=== PATIENT | female | born 1930 | race Caucasian/White ===

== ENCOUNTER 2016-10-03 07:59 | Emergency (ER) | payer MEDICARE ==
[~2016-10-03] VITALS: Ht 157.5 cm; Wt 79.0 kg
[~2016-10-03 07:59] MED LIST: ALBU2.5I INH; ASPI81 PO; ATOR10TA PO; BRIM.15%O BOTH EYES; BUME1TAB PO; CALC600T34 PO; CEFU1TAB43 PO; DIPH50TA PO; DORZ1SOL2 EACH EYE; KLOR20TA6 PO; LUMI0.01 EACH EYE; METO25 PO; NYST500KS SS; OMEG1CAP53 PO; PREV15CA20 PO; ROBIDMS PO; TAB-TAB PO; THEO200T11 PO; VITA400C70 PO
[2016-10-03 08:04] VITALS: BP 147/65; PULSE 82; RESP 28; O2SAT 93
[2016-10-03 08:52] LABS: AUTOMATED NEUTROPHIL # 6.3 TH/MM3 (1.8-7.7); BASOPHIL % 0.3 % (0.0-2.0); EOSINOPHIL # 0.1 TH/MM3 (0-0.4); HEMATOCRIT 37.6 % (35.0-46.0); HEMO FLAGS DIFF FINAL; LYMPH % 12.1 % (9.0-44.0); MEAN CELL VOLUME 89.4 FL (80.0-100.0); MEAN CORPUSCULAR HEMOGLOBIN 30.9 PG (27.0-34.0); MEAN CORPUSCULAR HGB CONC 34.6 % (32.0-36.0); MONO % 8.7 % (0.0-8.0); NEUT % 77.9 % (16.0-70.0); PLATELET COUNT 230 TH/MM3 (150-450); RED BLOOD COUNT 4.21 MIL/MM3 (4.00-5.30); RED CELL DISTRIBUTION WIDTH 13.6 % (11.6-17.2); WHITE BLOOD COUNT 8.1 TH/MM3 (4.0-11.0)
[2016-10-03 09:02] VITALS: O2SAT 90; O2SAT 95
[2016-10-03 09:08] VITALS: BP 153/74; PULSE 82; RESP 28; TEMP 98.5; O2SAT 95
[2016-10-03 09:13] LABS: BICARBONATE 27.4 MEQ/L (21.0-32.0); POTASSIUM 3.8 MEQ/L (3.5-5.1)
[2016-10-03] MEDS ORDERED: SODIUM CHLORIDE 0.9% FLUSH 5 ML FLUSH IVF PRN (09:15)
[2016-10-03] MEDS ORDERED: methylPREDNISolone SOD SUCC 125 MG/2 ML VIAL IVP ONE (09:15)
--- NOTE | 2016-10-03 09:16 | PD ---
HPI Chief Complaint: Respiratory Distress Time Seen by Provider: 09:01 Travel History International Travel<30 days: No Contact w/Intl Traveler<30days: No Traveled to known affect area: No History of Present Illness HPI Patient is a 86-year-old female who presents to the emergency department for cough and cold symptoms of several weeks duration. According to the son, the patient travel to [facility] for the holidays. The patient, "cold ", that the rest the family apparently also had at that time. However, the patient symptoms have progressed and the patient now has shortness of breath with chest congestion. The patient states she has a dry mostly nonproductive cough with chest congestion. She also complains of mild edema around the right eye with a small amount of drainage. 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 The patient does have a history of COPD secondary to secondhand smoke from her , but denies any history of personal tobacco use. The patient denies any history of pulmonary embolism, DVT, recent hospitalizations, recent surgery, or lower extremity swelling. The patient denies any known history congestive heart failure. The patient's oven roaster is Dr. Jayden Carpenter and her primary physician is Dr. Vaughn. [facility] Past Medical History Arthritis: Yes Asthma: Yes Depression: Yes Cancer: No Cardiovascular Problems: Yes High Cholesterol: Yes COPD: Yes Diabetes: No Endocrine: No Genitourinary: No Hepatitis: No Hiatal Hernia: Yes Hypertension: No Immune Disorder: No Neurologic: Yes Psychiatric: Yes Reproductive: No Respiratory: Yes (copd) Sleep Apnea: Yes (USES CPAP) Thyroid Disease: No Past Surgical History Abdominal Surgery: Yes (GALLBLADDER) Appendectomy: Yes Cholecystectomy: Yes Eye Surgery: Yes (R CATARACT/ STENTS) Joint Replacement: Yes (R KNEE) Social History Tobacco Use: No Substance Use: No Allergies-Medications (Allergen,Severity, Reaction): Coded Allergies: No Known Allergies (Verified , 07/18/14) Reported Meds & Prescriptions Reported Meds & Active Scripts Active Reported Liz Allergy (Fexofenadine HCl) 60 Mg Tab 60 Mg PO DAILY PRN Alph-E (Vitamin E) 400 Unit Cap 400 Units PO DAILY Theophylline ER 12 HR (Theophylline) 200 Mg Tab 200 Mg PO BID K-Tab (Potassium Chloride) 20 Meq Tab 20 Meq PO DAILY Fish Oil 1000 mg (Plano-3 Fatty Acids) 1 Cap Cap 1,000 Mg PO DAILY Multi Vitamin (Multiple Vitamin) 1 Tab Tab 1 Tab PO DAILY Diphenhydramine HCl (Diphenhydramine HCl (Sleep)) 50 Mg Tab 50 Mg PO DIRECTED PRN Dorzolamide Opth Drops (Dorzolamide HCl) 2% Soln 1 Drop EACH EYE BID Calcium (Calcium Carbonate) 600 Mg Tab 600 Mg PO DAILY Bumex (Bumetanide) 1 Mg Tab 1 Mg PO DAILY Lumigan Opth Drops (Bimatoprost) 0.01% Soln 1 Drop LEFT EYE HS Atorvastatin (Atorvastatin Calcium) 10 Mg Tab 10 Mg PO HS Aspir-81 (Aspirin) 81 Mg Tabdr 81 Mg PO HS Albuterol Neb (Albuterol Sulfate) 2.5 Mg/3 Ml Neb 2.5 Mg NEB Q4HR NEB While awake Review of Systems Except as stated in HPI: all other systems reviewed are Neg General / Constitutional: No: Fever Eyes: Positive: Drainage HENT: Positive: Congestion Cardiovascular: Positive: Dyspnea on exertion, No: Chest Pain or Discomfort Respiratory: Positive: Cough, Shortness of Breath Gastrointestinal: No: Nausea, Vomiting, Diarrhea, Abdominal Pain Musculoskeletal: No: Edema Neurologic: No: Dizziness Physical Exam Narrative GENERAL: Awake, alert, pleasant 86-year-old female who appears her stated age and is in mild respiratory distress. SKIN: Warm and dry. HEAD: Atraumatic. Normocephalic. EYES: The right pupil is irregular, she is able to see fingers at a distance of 2 feet, notes previous "stents "to the right eye. Left pupil is 3 mm and reactive. Mild injection of the left conjunctiva. ENT: No nasal bleeding or discharge. Mucous membranes pink and moist. NECK: Trachea midline. No JVD. CARDIOVASCULAR: Regular, heart rate in the 80s. RESPIRATORY: Mild tachypnea, diffuse wheezes and rhonchi noted. GASTROINTESTINAL: Abdomen soft, non-tender, nondistended. No rebound tenderness. MUSCULOSKELETAL: No obvious deformities. No clubbing. No cyanosis. No edema. Calves are soft bilaterally. NEUROLOGICAL: Awake and alert. No obvious cranial nerve deficits. Motor grossly within normal limits. Normal speech. PSYCHIATRIC: Appropriate mood and affect; insight and judgment normal. Data Data Last Documented VS Vital Signs Date Time Temp Pulse Resp B/P Pulse Ox O2 Delivery O2 Flow Rate FiO2 10/03/16 10:25 81 22 134/76 96 Nasal Cannula 2 10/03/16 09:08 98.5 Orders Complete Blood Count With Diff (10/03/16 08:08) Basic Metabolic Panel (Bmp) (10/03/16 08:08) Chest, Pa & Lat (10/03/16 08:08) Iv Access Insert/Monitor (10/03/16 08:08) Ecg Monitoring (10/03/16 08:08) Oxygen Administration (10/03/16 08:08) Oximetry (10/03/16 08:08) Electrocardiogram (10/03/16 08:08) Troponin I (10/03/16 09:08) B-Type Natriuretic Peptide (10/03/16 09:08) Creatine Kinase (Cpk) (10/03/16 09:08) Influenzae A/B Antigen (10/03/16 09:08) Blood Culture (10/03/16 09:08) Sodium Chloride 0.9% Flush (Ns Flush) (10/03/16 09:15) Methylprednisolone So Succ Inj (Solumedr (10/03/16 09:15) Albuterol-Ipratropium Neb (Duoneb Neb) (10/03/16 09:15) Lactic Acid (10/03/16 09:08) Labs Laboratory Tests Test 10/03/16 10/03/16 08:30 09:28 White Blood Count 8.1 TH/MM3 Red Blood Count 4.21 MIL/MM3 Hemoglobin 13.0 GM/DL Hematocrit 37.6 % Mean Corpuscular Volume 89.4 FL Mean Corpuscular Hemoglobin 30.9 PG Mean Corpuscular Hemoglobin 34.6 % Concent Red Cell Distribution Width 13.6 % Platelet Count 230 TH/MM3 Mean Platelet Volume 8.8 FL Neutrophils (%) (Auto) 77.9 % Lymphocytes (%) (Auto) 12.1 % Monocytes (%) (Auto) 8.7 % Eosinophils (%) (Auto) 1.0 % Basophils (%) (Auto) 0.3 % Neutrophils # (Auto) 6.3 TH/MM3 Lymphocytes # (Auto) 1.0 TH/MM3 Monocytes # (Auto) 0.7 TH/MM3 Eosinophils # (Auto) 0.1 TH/MM3 Basophils # (Auto) 0.0 TH/MM3 CBC Comment DIFF FINAL Differential Comment Sodium Level 138 MEQ/L Potassium Level 3.8 MEQ/L Chloride Level 101 MEQ/L Carbon Dioxide Level 27.4 MEQ/L Anion Gap 10 MEQ/L Blood Urea Nitrogen 13 MG/DL Creatinine 0.83 MG/DL Estimat Glomerular Filtration 65 ML/MIN Rate Random Glucose 103 MG/DL Calcium Level 9.0 MG/DL Total Creatine Kinase 121 U/L Troponin I LESS THAN 0.02 NG/ML B-Type Natriuretic Peptide 57 PG/ML Lactic Acid Level 1.3 mmol/L [facility] Medical Decision Making Medical Screen Exam Complete: Yes Emergency Medical Condition: Yes Medical Record Reviewed: Yes Interpretation(s) EKG reveals sinus tachycardia, sinus arrhythmia. Laboratory Tests Test 10/03/16 10/03/16 08:30 09:28 White Blood Count 8.1 TH/MM3 Red Blood Count 4.21 MIL/MM3 Hemoglobin 13.0 GM/DL Hematocrit 37.6 % Mean Corpuscular Volume 89.4 FL Mean Corpuscular Hemoglobin 30.9 PG Mean Corpuscular Hemoglobin 34.6 % Concent Red Cell Distribution Width 13.6 % Platelet Count 230 TH/MM3 Mean Platelet Volume 8.8 FL Neutrophils (%) (Auto) 77.9 % Lymphocytes (%) (Auto) 12.1 % Monocytes (%) (Auto) 8.7 % Eosinophils (%) (Auto) 1.0 % Basophils (%) (Auto) 0.3 % Neutrophils # (Auto) 6.3 TH/MM3 Lymphocytes # (Auto) 1.0 TH/MM3 Monocytes # (Auto) 0.7 TH/MM3 Eosinophils # (Auto) 0.1 TH/MM3 Basophils # (Auto) 0.0 TH/MM3 CBC Comment DIFF FINAL Differential Comment Sodium Level 138 MEQ/L Potassium Level 3.8 MEQ/L Chloride Level 101 MEQ/L Carbon Dioxide Level 27.4 MEQ/L Anion Gap 10 MEQ/L Blood Urea Nitrogen 13 MG/DL Creatinine 0.83 MG/DL Estimat Glomerular Filtration 65 ML/MIN Rate Random Glucose 103 MG/DL Calcium Level 9.0 MG/DL Total Creatine Kinase 121 U/L Troponin I LESS THAN 0.02 NG/ML Lactic Acid Level 1.3 mmol/L Chest x-ray reveals slight diffuse interstitial prominence that is unchanged. Minimal left lung scarring again noted. No significant effusion. Cardiomediastinal contours are grossly stable. Attenuation of thoracic kyphosis with degenerative changes in the spine. Differential Diagnosis Differential diagnosis includes COPD exacerbation, bronchitis, pneumonia, congestive heart failure, pulmonary edema, pleural effusion, pulmonary embolism , acute coronary syndrome. Narrative Course IV was established, labs were drawn and sent, and the patient was placed on cardiac telemetry monitoring and continuous pulse oximetry monitoring. EKG was ordered and interpreted. Chest x-ray was ordered. The patient was administered Solu-Medrol 125 mg intravenously and duo nebs 2. The patient's troponin is unremarkable. Chest x-ray revealed a stable chest with no acute pneumonia. The patient initially was hypoxic, was placed on oxygen via nasal cannula which brought her oxygen saturations level up to 94% and her respiratory rate did improve to 20. The patient's BMP and troponin were unremarkable. The patient was reassessed multiple times, her symptoms had significantly improved. I do discussion with the family regarding 23 hour observation for duo nebs and oxygen therapy, however, they plan on taking the patient back to [place] to stay with the family. I advised the family to return immediately if her symptoms worsen or progress and will discharge her home on prednisone, albuterol nebulizers, and Zithromax. She is advised to return if symptoms worsen or progress. Diagnosis Primary Impression: COPD exacerbation Additional Impression: COPD bronchitis Patient Instructions: General Instructions Additional Instructions: Medications as directed. Please provide the patient's family and patient a copy of the chest x-ray results and lab results at discharge. Return if symptoms worsen or progress. Med/Other Pt SpecificInfo: Prescription(s) given Scripts Albuterol Neb 2.5 Mg/3 Ml Neb2.5 Mg NEB Q4HR NEB #60 NEBULE Ref 0 While awake Prov:Jered Worley MD 10/03/16 Azithromycin (Zithromax Z-Leroy)250 Mg [id number] Mg PO DIRECTED #1 DSPK Ref 0 500 MG (2 tabs) day 1, then 1 tab days 2-5. Prov:Jered Worley MD 10/03/16 Prednisone (Deltasone)20 Mg Tab40 Mg PO DAILY 4 Days Ref 0 Prov:Jered Worley MD 10/03/16 Disposition: DISCHARGE HOME Condition: Stable Jered Worley MD Oct 03, 2016 09:16
[2016-10-03] MEDS: RESP: ALBUTEROL 2.5 MG/IPRATROPIUM 0.5 MG NEB (SCH) INH ×2 (09:18→09:27)
[2016-10-03] MEDS ORDERED: ATOR10TA15 PO (10:18)
[2016-10-03] MEDS ORDERED: ASPI81TA81 PO (10:18)
[2016-10-03] MEDS ORDERED: POTA1TAB4 PO (10:18)
[2016-10-03] MEDS ORDERED: ALLE60TA PO (10:18)
[2016-10-03] MEDS ORDERED: MULT-135 PO (10:18)
[2016-10-03] MEDS ORDERED: CALC600T25 PO (10:18)
[2016-10-03] MEDS ORDERED: LUMI0.01 LEFT EYE (10:18)
[2016-10-03] MEDS ORDERED: ALPH400C2 PO (10:18)
[2016-10-03] MEDS ORDERED: ALBU0.08 NEB ×2 (10:18→11:10)
[2016-10-03] MEDS ORDERED: DIPH50TA3 PO (10:18)
[2016-10-03] MEDS ORDERED: DORZ2SOL EACH EYE (10:18)
[2016-10-03] MEDS ORDERED: THEO200T9 PO (10:18)
[2016-10-03] MEDS ORDERED: FISH100020 PO (10:18)
[2016-10-03] MEDS ORDERED: BUME1TAB26 PO (10:18)
[2016-10-03 10:21] LABS: CREATINE KINASE 121 U/L (26-192)
[2016-10-03 10:25] VITALS: BP 134/76; PULSE 81; RESP 22; O2SAT 96
--- NOTE | 2016-10-03 10:28 | RADRPT ---
EXAM DATE/TIME: 10/03/2016 10:27 [facility] COMPARISON: CHEST SINGLE AP, July 18, 2014, 12:54. INDICATIONS : Short of breath and cough. MEDICAL HISTORY : Chronic obstructive pulmonary disease. SURGICAL HISTORY : None. ENCOUNTER: Initial ACUITY: 4 - 6 days PAIN SCORE: 0/10 LOCATION: Bilateral chest FINDINGS: Slight diffuse interstitial prominence is unchanged. Minimal left lung scarring again noted. No signi ficant effusion. Cardiomediastinal contours are grossly stable. Accentuation of thoracic kyphosis wit h degenerative changes in the spine. CONCLUSION: Stable chest. Rodney Calderon MD on October 03, 2016 at 10:25 Board Certified Radiologist. This report was verified electronically.
[2016-10-03] MEDS ORDERED: ZITHTAB PO (11:10)
[2016-10-03] MEDS ORDERED: PRED-503 PO (11:10)
[2016-10-03] MEDS ORDERED: VENTAER INH (11:27)
[2016-10-03 11:54] VITALS: BP 130/82
--- NOTE | 2016-10-03 12:25 | EKG ---
Date Performed: 10/03/2016 Time Performed: 08:17:03 PTAGE: 86 years EKG: SINUS TACHYCARDIA WITH FREQUENT SUPRAVENTRICULAR PREMATURE COMPLEXES MARKED LEFT AXIS DEVIA TION ABNORMAL ECG PREVIOUS TRACING : 07/18/2014 22.23 DOCTOR: Foreign Hodge Interpretating Date/Time 10/03/2016 12:21:44
== END 2016-10-03 11:55 | disposition home or self-care (01) ==
LOC: NEPC 07:59
DX: J44.1 Chronic obstructive pulmonary disease with (acute) exacerbation (principal); J40 Bronchitis, not specified as acute or chronic; G47.30 Sleep apnea, unspecified; E78.00 Pure hypercholesterolemia, unspecified
CPT/HCPCS: 71020; 80048; 82550; 83605; 83880; 84484; 85025; 87040; 87804; 93005; 94640; 94664; 96374; 99285; J2930